=== PATIENT | female | born 1945 | race Caucasian/White ===

== ENCOUNTER 2020-10-29 17:16 | Inpatient (IN) | payer BC, OTHER ==
[~2020-10-29] VITALS: Ht 167.6 cm; Wt 49.0 kg
[~2020-10-29 17:16] MED LIST: INSUPOW
[2020-10-29 22:25] LABS: Basophils # (auto) 0 10 ^3/uL (0-0.2); Basophils % (auto) 0.1 % (0.0-2.0); Eosinophils # (auto) 0 10 ^3/uL (0-0.8); Nucleated Red Blood Cells % 0.1 %
[2020-10-29 22:27] LABS: Hematocrit 35.5 % (36.0-46.0); Hemoglobin 11.9 g/dL (12.2-16.2); Lymphocytes # (auto) 1.5 10 ^3/uL (0.4-5.4); Lymphocytes % (auto) 10.6 % (10.0-50.0); Mean Corpuscular Hemoglobin 29.2 pg (28.0-32.0); Mean Corpuscular Hgb Conc. 33.5 g/dL (32.0-36.0); Mean Corpuscular Volume 87.1 fL (80.0-100.0); Monocytes # (auto) 0.8 10 ^3/uL (0-1.3); Monocytes % (auto) 5.5 % (0.0-12.0); Neutrophils # (auto) 11.7 10 ^3/uL (1.6-8.6); Neutrophils % (auto) 83.8 % (37.0-80.0); Platelet Count (auto) 542 10^3/uL (140-450); Red Blood Cells 4.07 10^6/uL (4.0-5.20); Red Cell Distribution Width 13.8 % (11.8-14.3)
[2020-10-29 22:38] LABS: Albumin 3.4 g/dL (3.4-5.0); Calcium 9.1 mg/dL (8.5-10.1); Magnesium 2.4 mg/dL (1.6-2.6); Potassium 3.9 mmol/L (3.5-5.1)
[2020-10-29 22:41] LABS: BUN/Creatinine Ratio 20.7; Bilirubin, Total 0.3 mg/dL (0.2-1.0)
[2020-10-30] MEDS ORDERED: levETIRAcetam 500 MG/5ML INJ IV ONE (05:31)
[2020-10-30] MEDS ORDERED: LORazepam 2MG/ML-1ML VIAL ONE (05:32)
[2020-10-30] MEDS ORDERED: SODIUM CHLORIDE 0.9% 500 ML IV ONE (12:45)
[2020-10-30] MEDS ORDERED: MORPHINE SULF INJ 2 MG/ML SYRINGE 1ML IV PRN (12:45)
[2020-10-30] MEDS ORDERED: NITROGLYCERIN 0.4 MG SL TAB SL PRN (12:45)
[2020-10-30] MEDS: SODIUM CHLORIDE 0.9% 1,000 ML IV SCH ×2 (15:00→22:49)
[2020-10-30] MEDS: PIPERACILLIN-TAZOB 3.375GM 100 ML IV SCH ×2 (18:00→23:38)
[2020-10-30] MEDS ORDERED: LORazepam 2MG/ML-1ML VIAL IV PRN (22:15)
[2020-10-30] MEDS: METOPROLOL TARTRATE 25 MG TAB PO SCH (22:48)
[2020-10-30] MEDS: levETIRAcetam 500 MG TAB PO SCH (22:49)
[2020-10-30 23:08] LABS: Folate (Folic Acid) 18.96 ng/mL (5.38-24)
[2020-10-31] MEDS: PIPERACILLIN-TAZOB 3.375GM 100 ML IV SCH ×4 (05:56→23:45)
[2020-10-31 07:00] LABS: Basophils # (auto) 0.1 10 ^3/uL (0-0.2); Eosinophils # (auto) 0 10 ^3/uL (0-0.8); Eosinophils % (auto) 0.1 % (0.0-7.0); Hemoglobin 11.9 g/dL (12.2-16.2); Lymphocytes # (auto) 1.4 10 ^3/uL (0.4-5.4); Mean Corpuscular Hgb Conc. 32.5 g/dL (32.0-36.0); Monocytes # (auto) 0.7 10 ^3/uL (0-1.3); Neutrophils # (auto) 7.6 10 ^3/uL (1.6-8.6)
[2020-10-31 07:02] LABS: Basophils % (auto) 0.8 % (0.0-2.0); Hematocrit 36.6 % (36.0-46.0); Mean Corpuscular Volume 86.3 fL (80.0-100.0); Neutrophils % (auto) 78.1 % (37.0-80.0); Platelet Count (auto) 518 10^3/uL (140-450); Red Blood Cells 4.24 10^6/uL (4.0-5.20); Red Cell Distribution Width 13.7 % (11.8-14.3); White Blood Cell 9.7 10^3/uL (4.4-10.8)
[2020-10-31 07:20] LABS: Albumin 3.3 g/dL (3.4-5.0); BUN/Creatinine Ratio 22.5; Potassium 3.8 mmol/L (3.5-5.1)
[2020-10-31 07:25] LABS: Bilirubin, Total 0.6 mg/dL (0.2-1.0); Total Protein 7.7 g/dL (6.4-8.2)
[2020-10-31 09:08] LABS: Urine WBC None Seen /hpf (0 - 5)
[2020-10-31 09:31] LABS: Urine Bacteria FEW /hpf (None Seen); Urine Blood 2+ /uL (Negative)
[2020-10-31 09:43] LABS: Amphetamine Screen, Urine NEGATIVE (NEGATIVE); Barbiturate Scree,Urine NEGATIVE (NEGATIVE); Benzodiazephine Screen, Urine NEGATIVE (NEGATIVE); Cannabinoid Screen, Urine NEGATIVE (NEGATIVE); Cocaine Screen, Urine NEGATIVE (NEGATIVE); Opiate Scree,Urine NEGATIVE (NEGATIVE); Phencyclidine Screen, Urine NEGATIVE (NEGATIVE)
[2020-10-31 10:08] LABS: Alcohol, Urine < 3.0 mg/dL (0-10)
[2020-10-31] MEDS: levETIRAcetam 500 MG TAB PO SCH ×2 (11:28→22:08)
[2020-10-31] MEDS: METOPROLOL TARTRATE 25 MG TAB PO SCH ×2 (11:29→22:09)
[2020-10-31] MEDS: ENOXAPARIN SOD 40 MG/0.4 ML SYRINGE SC SCH (11:31)
[2020-10-31] MEDS: SODIUM CHLORIDE 0.9% 1,000 ML IV SCH ×2 (11:41→18:05)
--- NOTE | 2020-10-31 17:35 | NUR ---
Telemetry admit from ER LINDSEY TAYLOR admitted to Telemetry unit after SBAR received. Patient oriented to CHAR borjas RN, unit, room 276A and unit policies regarding patient care and visiting hours. Patient now on continuous telemetry monitoring, tele box # [id number] and telemetry reading on arrival to unit is [id number]. Patient placed on bedside oxygen, weighed by bed scale and encouraged to call if they need something. All questions and concerns addressed, patient verbalized understanding.
[2020-10-31] MEDS ORDERED: LEVE500T32 PO (17:55)
[2020-10-31 18:09] VITALS: BP 153/85
--- NOTE | 2020-10-31 20:00 | NUR ---
Opening Shift Note Assumed care of patient, awake and alert. No S/S of distress/SOB or pain. Instructed on POC and to call for assist PRN, will continue to monitor for changes Q1hr and PRN. NIKO drain and abdominal incision clean and intact. Bed locked and in lowest position with call light in reach. Addendum: 10/31/20 at 2048 by SVEN SHAH RN RN no NIKO drain or abdominal incision on this patient
[2020-11-01] MEDS: SODIUM CHLORIDE 0.9% 1,000 ML IV SCH ×2 (04:45→12:25)
[2020-11-01] MEDS: PIPERACILLIN-TAZOB 3.375GM 100 ML IV SCH ×4 (05:41→23:36)
--- NOTE | 2020-11-01 07:50 | NUR ---
Opening Shift Note Assumed care of patient, awake and alert to self and place. No S/S of distress/SOB or pain. Instructed on POC and to call for assist PRN, will continue to monitor for changes Q1hr and PRN. Sitter at bedside for safety.
[2020-11-01 09:00] VITALS: BP 147/73
[2020-11-01] MEDS: levETIRAcetam 500 MG TAB PO SCH ×2 (09:19→21:48)
[2020-11-01] MEDS: ENOXAPARIN SOD 40 MG/0.4 ML SYRINGE SC SCH (09:21)
[2020-11-01] MEDS: METOPROLOL TARTRATE 25 MG TAB PO SCH ×2 (09:21→21:48)
[2020-11-01 11:52] LABS: Basophils # (auto) 0.2 10 ^3/uL (0-0.2); Basophils % (auto) 2.2 % (0.0-2.0); Eosinophils # (auto) 0.2 10 ^3/uL (0-0.8); Eosinophils % (auto) 2.4 % (0.0-7.0); Hematocrit 34.5 % (36.0-46.0); Hemoglobin 11.1 g/dL (12.2-16.2); Lymphocytes # (auto) 0.9 10 ^3/uL (0.4-5.4); Lymphocytes % (auto) 10.4 % (10.0-50.0); Mean Corpuscular Hemoglobin 28.2 pg (28.0-32.0); Mean Corpuscular Hgb Conc. 32.3 g/dL (32.0-36.0); Mean Corpuscular Volume 87.4 fL (80.0-100.0); Monocytes # (auto) 0.7 10 ^3/uL (0-1.3); Monocytes % (auto) 8.3 % (0.0-12.0); Neutrophils # (auto) 6.4 10 ^3/uL (1.6-8.6); Neutrophils % (auto) 76.7 % (37.0-80.0); Platelet Count (auto) 451 10^3/uL (140-450); Red Blood Cells 3.94 10^6/uL (4.0-5.20); Red Cell Distribution Width 14.1 % (11.8-14.3); White Blood Cell 8.3 10^3/uL (4.4-10.8)
[2020-11-01 12:21] LABS: BUN/Creatinine Ratio 22.7; Calcium 8.2 mg/dL (8.5-10.1); Magnesium 2.4 mg/dL (1.6-2.6); Potassium 3.6 mmol/L (3.5-5.1)
--- NOTE | 2020-11-01 12:50 | NUR ---
EEG. UNABLE TO COMPLETE DUE TO PATIENT'S HAIR MATTED CAUSING ARTIFACT. NOTIFIED.
--- NOTE | 2020-11-01 14:00 | NUR ---
collection supervisor unable to obtain EEG at this time, they are unable to place leads on patient's head.
[2020-11-01 17:00] VITALS: BP 149/79
--- NOTE | 2020-11-01 19:30 | NUR ---
Opening Shift Note Assumed care of patient, awake and alert. No S/S of distress/SOB or pain. Insructed on POC and to callfor assist PRN, will continue to monitor for changes Q1hr and PRN. hotel attendant at bedside for patient safety. Fall and safety and seizure precautions in place. Call light within reach.
[2020-11-01 22:00] VITALS: BP 141/70
[2020-11-02 05:29] VITALS: BP 136/71
[2020-11-02] MEDS: SODIUM CHLORIDE 0.9% 1,000 ML IV SCH ×2 (05:35→11:56)
[2020-11-02] MEDS: PIPERACILLIN-TAZOB 3.375GM 100 ML IV SCH ×2 (05:36→13:10)
[2020-11-02 06:37] LABS: Basophils # (auto) 0.1 10 ^3/uL (0-0.2); Basophils % (auto) 1.3 % (0.0-2.0); Eosinophils # (auto) 0.5 10 ^3/uL (0-0.8); Eosinophils % (auto) 7.1 % (0.0-7.0); Hematocrit 32.4 % (36.0-46.0); Hemoglobin 10.4 g/dL (12.2-16.2); Lymphocytes # (auto) 1.2 10 ^3/uL (0.4-5.4); Lymphocytes % (auto) 17.2 % (10.0-50.0); Mean Corpuscular Hemoglobin 27.8 pg (28.0-32.0); Mean Corpuscular Volume 86.9 fL (80.0-100.0); Monocytes # (auto) 0.6 10 ^3/uL (0-1.3); Monocytes % (auto) 8.8 % (0.0-12.0); Neutrophils # (auto) 4.5 10 ^3/uL (1.6-8.6); Neutrophils % (auto) 65.6 % (37.0-80.0); Nucleated Red Blood Cells % 0.1 %; Platelet Count (auto) 387 10^3/uL (140-450); Red Blood Cells 3.73 10^6/uL (4.0-5.20); Red Cell Distribution Width 13.8 % (11.8-14.3); White Blood Cell 6.9 10^3/uL (4.4-10.8)
[2020-11-02 06:46] LABS: Potassium 3.5 mmol/L (3.5-5.1)
[2020-11-02 06:58] LABS: BUN/Creatinine Ratio 20.4; Magnesium 2.5 mg/dL (1.6-2.6)
[2020-11-02 09:00] VITALS: BP 131/66
[2020-11-02] MEDS: levETIRAcetam 500 MG TAB PO SCH (09:22)
[2020-11-02] MEDS: ENOXAPARIN SOD 40 MG/0.4 ML SYRINGE SC SCH (09:22)
[2020-11-02] MEDS: METOPROLOL TARTRATE 25 MG TAB PO SCH (09:23)
--- NOTE | 2020-11-02 12:38 | NUR ---
Nutrition Assessment Notes Please refer to link for full assessment notes. Est Energy needs: 9637-4860 kcals (20-23 kcal/kgIBW of 59kg) Est Protein needs: 59-65 gms/day (1.0-1.1 gm/kgIBW of 59kg) Will continue to monitor and reassess prn. Addendum: 11/02/20 at [address] Amended: Links added.
[2020-11-02 12:41] VITALS: BP 133/71
--- NOTE | 2020-11-02 13:05 | NUR ---
Bowel Movement Patient refused to use bedpan or bedside commode. Moderate assistance to the bathroom provided and patient had a bowel movement.
--- NOTE | 2020-11-02 14:40 | NUR ---
Dr. Ramirez at bedside MD at bedside discussing plan of care with patient and this RN. New order received for home health evaluation, will place orders and update primary RN. Patient to discharge home today.
--- NOTE | 2020-11-02 14:49 | NUR ---
updated family Dr. Ramirez called and updated patients bg Hall , on plan of care.
[2020-11-02] MEDS ORDERED: LEVE500T32 PO (14:52)
--- NOTE | 2020-11-02 16:46 | NUR ---
Reassessment Per [facility], patient is accepted services for home health, physical therapy, and safety evaluation. Per Anain, waiting on authorization for home health to start services. JENIFFER notify Ines MUNIZ of status for home health services.
[2020-11-02 16:54] VITALS: BP 139/72
[2020-11-02 16:58] VITALS: BP 139/72
--- NOTE | 2020-11-02 18:30 | NUR ---
Reynolds catheter dc'd Order to discontinue reynolds catheter. Reynolds dc'd with clean technique following deflation of balloon. Patient tolerated well with no complaints of pain. Continue care.
--- NOTE | 2020-11-02 18:35 | NUR ---
Midline Dressing Change Dressing change to midline done. Patient came in with midline, as per her son Rafael, patient has 5 more days of antibiotics to continue when she return home.
--- NOTE | 2020-11-02 19:35 | NUR ---
Discharge instructions given as ordered. Encourage to follow up with PMD as instructed. All questions and concerns addressed. Patient verbalized understanding. Medication reconciliation form completed and copy given to patient. Horan catheter previously removed. Telemetry unit returned to ICU. Patient taken to vehicle via wheelchair with all personal belongings, accompanied by staff. No distress noted at time of departure.
== END 2020-11-02 19:38 | disposition home health service (06) | DRG 70 ==
LOC: EDBD 17:16 → EDUNIT# 17:20 → ER 17:20 → TELE 17:21 → TELE-WESTW 10-31 17:34
PROVIDERS: ADMIT Nurse Practitioner Acute Care; ATTEND Internal Medicine
DX: G93.41 Metabolic encephalopathy (principal); N17.0 Acute kidney failure with tubular necrosis; R64 Cachexia; E44.0 Moderate protein-calorie malnutrition; N39.0 Urinary tract infection, site not specified; Z68.1 Body mass index [BMI] 19.9 or less, adult; G40.409 Other generalized epilepsy and epileptic syndromes, not intractable, without status epilepticus; E11.9 Type 2 diabetes mellitus without complications; I11.0 Hypertensive heart disease with heart failure; I50.9 Heart failure, unspecified; Z20.828 Contact with and (suspected) exposure to other viral communicable diseases; F02.80 Dementia in other diseases classified elsewhere, unspecified severity, without behavioral disturbance, psychotic disturbance, mood disturbance, and anxiety; G30.9 Alzheimer's disease, unspecified; Z79.84 Long term (current) use of oral hypoglycemic drugs; Z79.899 Other long term (current) drug therapy; Z87.440 Personal history of urinary (tract) infections; Z90.710 Acquired absence of both cervix and uterus
CPT/HCPCS: 36415; 70450; 71045; 80048; 80053; 80307; 81001; 82607; 82746; 83036; 83735; 84425; 84443; 85025; 86141; 87040; 87086; 87426; 93005; 96374; 97116; 97163; 97530; G0378; J2543; J7060

== ENCOUNTER → 2022-05-30 | Emergency (ER) | payer BC ==
[~2022-05-30] VITALS: Ht 167.6 cm; Wt 49.9 kg
[~2022-05-30] MED LIST changes: +LEVE500T32 PO
[2022-05-30 21:04] VITALS: BP 136/82
== END | disposition left against medical advice (07) ==
LOC: ER 21:05
DX: R10.30 Lower abdominal pain, unspecified (principal); M54.50 Low back pain, unspecified; Z53.21 Procedure and treatment not carried out due to patient leaving prior to being seen by health care provider
CPT/HCPCS: 82962

== ENCOUNTER 2024-05-08 02:17 | Emergency (ER) | payer BC ==
[~2024-05-08] VITALS: Ht 167.6 cm; Wt 50.0 kg
[~2024-05-08 02:17] MED LIST changes: -LEVE500T32 PO; +LEVE500T40 PO
[2024-05-08 03:11] LABS: Basophils # (auto) 0.1 10 ^3/uL (0-0.2); Basophils % (auto) 1.3 % (0.0-2.0); Eosinophils # (auto) 0.1 10 ^3/uL (0-0.8); Eosinophils % (auto) 1.2 % (0.0-7.0); Hematocrit 34.6 % (36.0-46.0); Hemoglobin 11.4 g/dL (12.2-16.2); Lymphocytes # (auto) 2.1 10 ^3/uL (0.4-5.4); Lymphocytes % (auto) 23.1 % (10.0-50.0); Mean Corpuscular Hemoglobin 28.1 pg (28.0-32.0); Mean Corpuscular Volume 85.4 fL (80.0-100.0); Monocytes % (auto) 10.5 % (0.0-12.0); Neutrophils # (auto) 5.9 10 ^3/uL (1.6-8.6); Neutrophils % (auto) 63.9 % (37.0-80.0); Red Blood Cells 4.06 10^6/uL (4.0-5.20); Red Cell Distribution Width 14.6 % (11.8-14.3); White Blood Cell 9.2 10^3/uL (4.4-10.8)
[2024-05-08 03:15] VITALS: BP 205/108; PULSE 76; RESP 18; O2SAT 94
[2024-05-08 03:27] LABS: Chloride 110 mmol/L (98-107); Potassium 4.1 mmol/L (3.5-5.1); Sodium 141 mmol/L (136-145)
[2024-05-08 03:28] LABS: Anion Gap 6 (5-15); Calcium 9.8 mg/dL (8.5-10.1); Carbon Dioxide 25 mmol/L (20-30)
[2024-05-08 03:33] LABS: BUN/Creatinine Ratio 22.1 (10.0-20.0); Blood Urea Nitrogen 40 mg/dL (9-23); Glucose 145 mg/dL (74-106)
== END 2024-05-08 05:35 | disposition home or self-care (01) ==
LOC: ER 02:17 → EDBD 02:17 → ER 05:35
DX: S00.03XA Contusion of scalp, initial encounter (principal); R51.9 Headache, unspecified; I11.0 Hypertensive heart disease with heart failure; I50.9 Heart failure, unspecified; E11.9 Type 2 diabetes mellitus without complications; F03.90 Unspecified dementia, unspecified severity, without behavioral disturbance, psychotic disturbance, mood disturbance, and anxiety; Z79.899 Other long term (current) drug therapy; W18.39XA Other fall on same level, initial encounter; Y93.89 Activity, other specified; Y92.89 Other specified places as the place of occurrence of the external cause; Y99.8 Other external cause status
CPT/HCPCS: 36415; 70450; 80048; 85025; 93005

== ENCOUNTER 2024-07-08 20:03 | Inpatient (IN) | payer BC ==
[~2024-07-08] VITALS: Ht 167.6 cm; Wt 50.0 kg
[2024-07-08 21:08] LABS: Basophils # (auto) 0.1 10 ^3/uL (0-0.2); Basophils % (auto) 1.2 % (0.0-2.0); Eosinophils # (auto) 0.3 10 ^3/uL (0-0.8); Hematocrit 34.3 % (36.0-46.0); Hemoglobin 11.3 g/dL (12.2-16.2); Lymphocytes # (auto) 0.8 10 ^3/uL (0.4-5.4); Lymphocytes % (auto) 11.1 % (10.0-50.0); Mean Corpuscular Hemoglobin 28.3 pg (28.0-32.0); Mean Corpuscular Hgb Conc. 32.9 g/dL (32.0-36.0); Monocytes # (auto) 0.9 10 ^3/uL (0-1.3); Monocytes % (auto) 11.5 % (0.0-12.0); Neutrophils # (auto) 5.4 10 ^3/uL (1.6-8.6); Neutrophils % (auto) 72.2 % (37.0-80.0); Nucleated Red Blood Cells % 0.1 %; Red Blood Cells 3.99 10^6/uL (4.0-5.20); Red Cell Distribution Width 14.4 % (11.8-14.3); White Blood Cell 7.5 10^3/uL (4.4-10.8)
[2024-07-08 21:24] LABS: Albumin 4.1 g/dL (3.2-4.8); Alkaline Phosphatase 92 U/L (46-116); Anion Gap 8 (5-15); Aspartate Aminotransferase 9 U/L (13-40); BUN/Creatinine Ratio 20.4 (10.0-20.0); Bilirubin, Total 0.2 mg/dL (0.2-1.0); Blood Urea Nitrogen 37 mg/dL (9-23); Calcium 9.6 mg/dL (8.7-10.4); Carbon Dioxide 21 mmol/L (20-30); Chloride 108 mmol/L (98-107); Glucose 186 mg/dL (74-106); Lipase 40 U/L (12-53); Potassium 4.6 mmol/L (3.5-5.1); Sodium 137 mmol/L (136-145); Total Protein 7.1 g/dL (5.7-8.2)
[2024-07-08 21:30] LABS: Alanine Aminotransferase < 9 U/L (7-40)
[2024-07-08 21:46] LABS: Blood Alcohol < 3.0 mg/dL (<10)
[2024-07-08] MEDS: SODIUM CHLORIDE 0.9% 1,000 ML IV ONE (23:15)
[2024-07-08] MEDS: ONDANSETRON ODT 4 MG TAB PO ONE (23:21)
[2024-07-09 00:34] LABS: Urine Bacteria FEW /hpf (None Seen); Urine Blood TRACE /uL (Negative); Urine Budding Yeast MODERATE /hpf (None Seen); Urine Clarity Turbid (Clear); Urine Color Light-Yellow (Yellow); Urine Hyaline Cast FEW /lpf (0 - 2); Urine Mucus FEW (None Seen); Urine Protein, UAD 2+ (Negative); Urine Specific Gravity 1.016 (1.001-1.035); Urine Urobilinogen Normal (Negative); Urine WBC 3 /hpf (0 - 5); Urine pH 5.5 (5.0-9.0)
[2024-07-09 01:09] LABS: Amphetamine Screen, Urine Neg (NEGATIVE); Barbiturate Scree,Urine Neg (NEGATIVE); Benzodiazephine Screen, Urine Neg (NEGATIVE); Cannabinoid Screen, Urine Neg (NEGATIVE); Cocaine Screen, Urine Neg (NEGATIVE); Opiate Scree,Urine Neg (NEGATIVE); Phencyclidine Screen, Urine Neg (NEGATIVE)
[2024-07-09] MEDS: levETIRAcetam 1000 mg/100ml 100 ML IV ONE (03:55)
[2024-07-09 04:32] VITALS: PULSE 76; RESP 16; O2SAT 94
[2024-07-09 08:00] VITALS: PULSE 82; RESP 12; TEMP 98; O2SAT 96
[2024-07-09] MEDS: amLODIPine BESYLATE 5 MG TAB PO ONE (09:35)
[2024-07-09] MEDS ORDERED: OMEP1CAP70 PO (10:15)
[2024-07-09] MEDS ORDERED: AMLO1TAB22 PO (10:15)
[2024-07-09] MEDS ORDERED: ONDANSETRON HCL 4 MG/2 ML VIAL IV PRN (11:00)
[2024-07-09] MEDS ORDERED: DEXTROSE (50%) 50ML SYRG IV PRN (11:00)
[2024-07-09] MEDS ORDERED: MORPHINE SULFATE INJ 2 MG/ml SYRG IV PRN (11:00)
[2024-07-09] MEDS ORDERED: DOCUSATE SOD 100 MG CAP PO PRN (11:00)
[2024-07-09] MEDS ORDERED: NITROGLYCERIN 0.4 MG SL TAB SL PRN (11:00)
[2024-07-09] MEDS: SODIUM CHLORIDE 0.9% 1,000 ML IV SCH (11:21)
[2024-07-09] MEDS: cefTRIAXone 1GM/50ML D5W 50 ML IV ONE (11:21)
[2024-07-09] MEDS: ASPirin 81 mg TAB PO ONE (11:21)
[2024-07-09] MEDS: ENOXAPARIN SOD 30 MG/0.3 ML SYRINGE SC SCH (11:21)
[2024-07-09] MEDS: ACCU-CHEK COMFORT CURVE STRIP VI SCH (11:35)
[2024-07-09] MEDS: InsuLIN REG 1unit/0.01ml Soln (100units/ml) SC SCH (11:36)
[2024-07-09] MEDS: LORazepam 2MG/ML-1ML VIAL IV PRN (19:02)
[2024-07-09] MEDS: ATORVASTATIN 20 MG TAB PO SCH (22:40)
[2024-07-09 23:00] VITALS: BP 157/80; RESP 18; O2SAT 89
[2024-07-10] VITALS: PULSE 87
[2024-07-10] MEDS ORDERED: cefTRIAXone 1GM/50ML D5W 50 ML IV SCH (09:00)
[2024-07-10] MEDS ORDERED: ASPirin 81 mg TAB PO SCH (10:00)
[2024-07-10] MEDS ORDERED: PANTOPRAZOLE 40 MG TAB PO SCH (10:00)
[2024-07-10] MEDS ORDERED: amLODIPine BESYLATE 5 MG TAB PO SCH (10:00)
== END 2024-07-10 01:20 | disposition left against medical advice (07) | DRG 682 ==
LOC: ER 20:03 → TELE 07-09 10:53
PROVIDERS: ADMIT Nurse Practitioner Family; ATTEND Nurse Practitioner Family
DX: N17.9 Acute kidney failure, unspecified (principal); G93.41 Metabolic encephalopathy; N30.00 Acute cystitis without hematuria; R64 Cachexia; I13.0 Hypertensive heart and chronic kidney disease with heart failure and stage 1 through stage 4 chronic kidney disease, or unspecified chronic kidney disease; Z68.1 Body mass index [BMI] 19.9 or less, adult; N18.4 Chronic kidney disease, stage 4 (severe); D64.9 Anemia, unspecified; E11.22 Type 2 diabetes mellitus with diabetic chronic kidney disease; G30.9 Alzheimer's disease, unspecified; R07.89 Other chest pain; G40.909 Epilepsy, unspecified, not intractable, without status epilepticus; I50.9 Heart failure, unspecified; F02.80 Dementia in other diseases classified elsewhere, unspecified severity, without behavioral disturbance, psychotic disturbance, mood disturbance, and anxiety; Z79.4 Long term (current) use of insulin; Z90.710 Acquired absence of both cervix and uterus
CPT/HCPCS: 36415; 70450; 71045; 76775; 80053; 80307; 80320; 81001; 82962; 83690; 83880; 84484; 85025; 93306; 96361; 96365; G0378; J1815; Q0162